=== PATIENT | male | born 1960 | race Caucasian/White ===

== ENCOUNTER 2018-03-20 07:14 | Day surgery (SDC) ==
[2018-03-20] MEDS: BETADINE OPTH PREP OP PRN ×2 (07:40→08:06)
[2018-03-20] MEDS: TETRACAINE 0.5% UNIT-DOSE OP PRN ×3 (07:40→08:20)
[2018-03-20] MEDS: CYCLOGYL 2% OPTH OP PRN ×3 (07:41→07:51)
[2018-03-20] MEDS ORDERED: ZOFRAN 4 MG/2 ML IVP ONE (07:43)
[2018-03-20] MEDS ORDERED: BRIMONIDINE TARTRATE 0.2% OPTH SOL OP PRN (07:43)
[2018-03-20] MEDS ORDERED: BSS WITH EPINEPHRINE OP ONE (07:43)
[2018-03-20] MEDS ORDERED: LIDOCAINE 1%/PHENYLEPHRINE 1.5% BSS (SURGERY) INTRAOCULA ONE (07:43)
[2018-03-20] MEDS ORDERED: DEX-MOXI-KETOR OPTH INJ 1/0.5/0.4 MG/ML IO ONE (07:43)
[2018-03-20] MEDS ORDERED: LIDOCAINE 1% 20 ML MDV ID STA (07:43)
[2018-03-20] MEDS ORDERED: ZOFRAN 4 MG/2 ML ONE (08:15)
[2018-03-20] MEDS ORDERED: SUBLIMAZE ONE (08:15)
[2018-03-20] MEDS ORDERED: VERSED ONE (08:15)
[2018-03-20 12:23] VITALS: TEMP 98.1
[2018-03-21 13:00] VITALS: BP 132/678
== END 2018-03-20 09:15 | disposition home or self-care (01) ==
LOC: SURG 07:14
PROVIDERS: ATTEND Ophthalmology
DX: H25.11 Age-related nuclear cataract, right eye (principal)

== ENCOUNTER 2018-04-02 07:00 | Day surgery (SDC) ==
[2018-04-02] MEDS: TETRACAINE 0.5% UNIT-DOSE OP PRN ×2 (06:55→08:05)
[2018-04-02] MEDS: BETADINE OPTH PREP OP PRN ×2 (06:55→08:05)
[2018-04-02] MEDS: CYCLOGYL 2% OPTH OP PRN ×3 (06:56→07:06)
[2018-04-02] MEDS ORDERED: LIDOCAINE 1%/PHENYLEPHRINE 1.5% BSS (SURGERY) INTRAOCULA ONE (07:14)
[2018-04-02] MEDS ORDERED: DEX-MOXI-KETOR OPTH INJ 1/0.5/0.4 MG/ML IO ONE (07:14)
[2018-04-02] MEDS ORDERED: LIDOCAINE 1% 20 ML MDV ID STA (07:14)
[2018-04-02] MEDS ORDERED: ZOFRAN 4 MG/2 ML IVP ONE (07:14)
[2018-04-02] MEDS ORDERED: BRIMONIDINE TARTRATE 0.2% OPTH SOL OP PRN (07:14)
[2018-04-02] MEDS ORDERED: BSS WITH EPINEPHRINE OP ONE (07:14)
[2018-04-02 07:22] VITALS: TEMP 98
[2018-04-02] MEDS ORDERED: VERSED ONE (08:05)
[2018-04-02] MEDS ORDERED: ZOFRAN 4 MG/2 ML ONE (08:05)
[2018-04-02] MEDS ORDERED: SUBLIMAZE ONE (08:05)
[2018-04-04 12:20] VITALS: BP 128/67
== END 2018-04-02 09:15 | disposition home or self-care (01) ==
LOC: SURG 07:00
PROVIDERS: ATTEND Ophthalmology
DX: H25.12 Age-related nuclear cataract, left eye (principal)